=== PATIENT | male | born 1995 | race Caucasian/White ===

== ENCOUNTER 2017-11-22 03:01 | Emergency (ER) | payer MEDICAID, SELFPAY ==
[2017-11-22 03:06] VITALS: BP 131/62; PULSE 62; RESP 18; TEMP 36.8; O2SAT 98
[2017-11-22] MEDS: Acetaminophen 500 MG TAB 1000 MG PO (03:26)
[2017-11-22] MEDS: Lidocaine 5% Patch 1 PATCH TP (03:27)
[2017-11-22] MEDS: Ketorolac 30 MG/ML VIAL 15 MG IM (03:27)
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
[2017-11-22 04:09] LABS: Bilirubin Negative (Negative); Blood Negative (Negative); Clarity Sl Cloudy; Glucose Negative (Negative); Ketones Negative (Negative); Leukocyte Esterase Negative (Negative); Nitrite Negative (Negative)
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
[2017-11-22 04:16] LABS: Bacteria Rare HPF (Negative); C & S Indicated? No; Casts Negative LPF (Negative); Crystals Many Amorphous HPF (Negative); Epithelial Cells Rare HPF (Negative); Mucus Negative (Negative); RBC 0-2 (0-2)
--- NOTE | 2017-11-23 08:56 | PDOC.ERCMPRO ---
Care Management Progress Note 11/23/17-Pt seen for back pain by Dr. Manny Blandon on 11/22/17. Pt reported he would like to establish a pcp in this area. Pt currently is listed as living in [place] and has a PCP, Joanne Ackerman at [facility] in [place], [place]. CM has faxed a referral to switch PCP's to [facility] as Bernardo Portillo was production controller. CM has left two VM messages on the pt's cell phone.
--- NOTE | 2017-11-23 09:00 | CMPROGNOTE_ITS ---
Care Management Progress Note 11/23/17-Pt seen for back pain by Dr. Manny Blandon on 11/22/17. Pt reported he would like to establish a pcp in this area. Pt currently is listed as living in [place] and has a PCP, Joanne Ackerman at [facility] in [place], [place]. CM has faxed a referral to switch PCP's to [facility] as Bernardo Portillo was agricultural extension educator. CM has left two VM messages on the pt's cell phone.
== END 2017-11-22 04:29 | disposition home or self-care (01) ==
LOC: ER 04:38
PROVIDERS: Emergency Provider Student in an Organized Health Care Education/Training Program; PCP Nurse Practitioner Family
DX: M54.5 Low back pain (principal); R11.0 Nausea
CPT/HCPCS: 96372; 99284; 72072; 72110; 81003; 81015; 99285; J1885

== ENCOUNTER 2018-05-03 05:53 | Inpatient (IN) | payer OTHER, SELFPAY ==
[2018-05-03] VITALS (7 sets, daily range): BP systolic 118–149; BP diastolic 55–78; PULSE 42–67; RESP 14–20; TEMP 36.2–37.7; O2SAT 96–100
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
[2018-05-03] MEDS: Normal Saline 1,000 ML 1000 ML IV (06:12)
[2018-05-03] MEDS: Ketorolac 15 MG/ML VIAL IVP (06:15)
[2018-05-03] MEDS: Ondansetron 4 MG/2 ML VIAL IVP ×3 (06:16→22:25)
[2018-05-03 06:19] LABS: Abs Immature Grans 0.02 k/cumm (0.0-0.09); Absolute Basophil Count 0.01 k/cumm (0.0-0.2); Absolute Eosinophil Count 0.01 k/cumm (0.0-0.7); Absolute Lymphocyte Count 0.93 k/cumm (1.2-3.4); Absolute Monocyte Count 0.37 k/cumm (0.11-0.7); Basophils % 0.1; Eosinophils % 0.1; HCT 48.2 % (40.0-50.0); HGB 16.8 g/dL (13.5-17.5); Immature Grans % 0.1; Lymphocytes % 6.9; Mean Corp. HGB Concentration 34.9 g/dL (32.0-36.0); Mean Corpuscular Hemoglobin 30.5 pg (27.0-33.0); Mean Corpuscular Volume 87.6 fL (80-95); Mean Platelet Volume 9.8 fL (8.0-11.0); Monocytes % 2.7; Neutrophils % 90.1; Platelet Count 207 x1000/uL (130-400); RBC Distribution Width 13.6 % (11.8-14.1); White Blood Cell Count 13.54 k/cumm (4.4-10.8)
[2018-05-03 06:31] LABS: ALT 22 U/L (12-78); AST 20 U/L (15-37); Albumin 4.7 g/dL (3.4-5.0); Alkaline Phosphatase 58 U/L (46-116); Anion Gap 11.7 mmol/L (3-11); BUN 22 mg/dL (7-18); Bilirubin, Total 0.4 mg/dL (0.2-1.0); CO2 27.3 mmol/L (21.0-32.0); Calcium 9.8 mg/dL (8.5-10.1); Chloride 100 mmol/L (98-107); Glucose 136 mg/dL (70-100); Lipase 74 U/L (73-393); Potassium 4.7 mmol/L (3.5-5.1); Sodium 139 mmol/L (136-145); Total Protein 7.9 g/dL (6.4-8.2)
[2018-05-03] MEDS: LORazepam 2 MG/ML VIAL 1 MG IVP (06:41)
[2018-05-03] MEDS: Omnipaque 350 MG/ML 100 ML BTL IV ×2 (07:02→11:38)
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
[2018-05-03] MEDS: Benzocaine 20% 60 ML CAN (08:19)
[2018-05-03] MEDS: LORazepam 2 MG/ML VIAL 0.5 MG IVP (08:19)
--- NOTE | 2018-05-03 08:41 | NUR.NOTE ---
Nursing Note: Attempt x2 to place NG tube with no success. MD attempted x1 with no success. Will notify admitting physician.
[2018-05-03] MEDS: Lactated Ringers 1,000 ML 125 ML IV ×2 (09:43→19:46)
[2018-05-03] MEDS: HYDROmorphone 2 MG/ML VIAL 0.5 MG IVP ×3 (10:26→22:50)
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
[2018-05-03] MEDS: Omnipaque 350 MG/ML 100 ML BTL IJ (11:38)
[2018-05-03] MEDS: Omnipaque 350 MG/ML 50 ML BTL IJ (11:39)
[2018-05-03] MEDS: Ketorolac 30 MG/ML VIAL IVP ×3 (12:31→22:50)
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
--- NOTE | 2018-05-03 14:22 | W.PM.PROGNOT ---
Date of Service Date of service: 05/03/18 Time of Service: 14:22 Assessment and Plan (1) Bowel obstruction: Current visit: Yes Status: Acute As noted in H&P. Recurrent nausea and vomiting. NG was attempted x 3 in the ED without success. Will keep NPO except ice chips. Follow-up AXR in am. Will order nicotine patch per patient request. Discussed plans with patient. He is agreeable with plans as discussed. (2) Abdominal pain, chronic, left lower quadrant: Current visit: Yes Status: Acute As discussed. Continue bowel rest and await follow-up films in the am. Subjective Interval history since last seen: Patient had 1 green, bilious emesis since admission to floor. Small bowel follow-through shows contrast in small bowel down to LLQ with no further progression after [id number]. Discussed with radiologist, Dr. Tsang. Will obtain a follow-up AXR in the am. Patient notes some nausea and abdominal discomfort/cramping. (+) hiccups. Exam Const General: cooperative and no acute distress Eyes Sclera: sclerae normal GI Inspection: non-distended Palpation: soft, not firm, no guarding, no masses and not rigid Auscultation: normal bowel sounds Objective Objective Clinical Data: Abnormal lab results 05/03/18 05/03/18 Range/Units 06:08 06:08 WBC 13.54 H (4.4-10.8) k/cumm Absolute Neutrophils 12.20 H (1.2-6.7) k/cumm Absolute Lymphocytes 0.93 L (1.2-3.4) k/cumm Anion Gap 11.7 H (3-11) mmol/L BUN 22 H (7-18) mg/dL Glucose 136 H (70-100) mg/dL Vital Signs Temperature 36.7 C 05/03/18 13:00 Temperature Source Temporal Artery Scan 05/03/18 13:00 Pulse 42 L 05/03/18 13:00 Respiratory Rate 14 05/03/18 13:00 Respiratory Effort 05/03/18 05:58 Blood Pressure 149/76 H 05/03/18 13:00 Blood Pressure Position Sitting 05/03/18 05:55 Pulse Oximetry 100 05/03/18 13:00 Oxygen Delivery Method Room Air 05/03/18 13:00 Oxygen Flow Rate 0 05/03/18 13:00 Pain Level 0 05/03/18 12:08 Intake & Output 05/02/18 05/03/18 05/03/18 23:59 11:59 23:59 Intake Total 1000 / 1000 Balance 1000 / 1000 Weight 65.771 kg Intake: IV 1000 / 1000 Laboratory Results WBC 13.54 k/cumm (4.4-10.8) H 05/03/18 06:08 RBC 5.50 m/cumm (4.50-6.00) 05/03/18 06:08 Hgb 16.8 g/dL (13.5-17.5) 05/03/18 06:08 Hct 48.2 % (40.0-50.0) 05/03/18 06:08 MCV 87.6 fL (80-95) 05/03/18 06:08 MCH 30.5 pg (27.0-33.0) 05/03/18 06:08 MCHC 34.9 g/dL (32.0-36.0) 05/03/18 06:08 RDW 13.6 % (11.8-14.1) 05/03/18 06:08 Plt Count 207 x1000/uL (130-400) 05/03/18 06:08 MPV 9.8 fL (8.0-11.0) 05/03/18 06:08 Immature Gran % 0.1 05/03/18 06:08 Neutrophils % 90.1 05/03/18 06:08 Lymphocytes % 6.9 05/03/18 06:08 Monocytes % 2.7 05/03/18 06:08 Eosinophils % 0.1 05/03/18 06:08 Basophils % 0.1 05/03/18 06:08 Absolute Neutrophils 12.20 k/cumm (1.2-6.7) H 05/03/18 06:08 Absolute Lymphocytes 0.93 k/cumm (1.2-3.4) L 05/03/18 06:08 Absolute Monocytes 0.37 k/cumm (0.11-0.7) 05/03/18 06:08 Absolute Eosinophils 0.01 k/cumm (0.0-0.7) 05/03/18 06:08 Absolute Basophils 0.01 k/cumm (0.0-0.2) 05/03/18 06:08 Sodium 139 mmol/L (136-145) 05/03/18 06:08 Potassium 4.7 mmol/L (3.5-5.1) 05/03/18 06:08 Chloride 100 mmol/L (98-107) 05/03/18 06:08 Carbon Dioxide 27.3 mmol/L (21.0-32.0) 05/03/18 06:08 Anion Gap 11.7 mmol/L (3-11) H 05/03/18 06:08 BUN 22 mg/dL (7-18) H 05/03/18 06:08 Creatinine 1.00 mg/dL (0.70-1.30) 05/03/18 06:08 Estimated GFR/1.73 m2 >= 60.00 (mL/min/1.73m2) 05/03/18 06:08 Glucose 136 mg/dL (70-100) H 05/03/18 06:08 Calcium 9.8 mg/dL (8.5-10.1) 05/03/18 06:08 Total Bilirubin 0.4 mg/dL (0.2-1.0) 05/03/18 06:08 Conjugated Bilirubin 0.10 mg/dL (0.00-0.20) 05/03/18 06:08 AST 20 U/L (15-37) 05/03/18 06:08 ALT 22 U/L (12-78) 05/03/18 06:08 Alkaline Phosphatase 58 U/L (46-116) 05/03/18 06:08 Total Protein 7.9 g/dL (6.4-8.2) 05/03/18 06:08 Albumin 4.7 g/dL (3.4-5.0) 05/03/18 06:08 Lipase 74 U/L (73-393) 05/03/18 06:08
[2018-05-03] MEDS: Nicotine 21 MG/24 HR PATCH TD (14:55)
[2018-05-03] MEDS: Normal Saline Flush 10 ML SYR IVP (16:26)
[2018-05-04] VITALS (11 sets, daily range): BP systolic 112–149; BP diastolic 49–80; PULSE 45–65; RESP 13–18; TEMP 36.4–37.2; O2SAT 97–99
[2018-05-04] MEDS: HYDROmorphone 2 MG/ML VIAL 0.5 MG IVP ×3 (04:25→16:23)
[2018-05-04] MEDS: Normal Saline Flush 10 ML SYR IVP ×4 (04:25→16:24)
[2018-05-04 07:26] LABS: Abs Immature Grans 0.01 k/cumm (0.0-0.09); Absolute Basophil Count 0.01 k/cumm (0.0-0.2); Absolute Eosinophil Count 0.04 k/cumm (0.0-0.7); Absolute Lymphocyte Count 1.21 k/cumm (1.2-3.4); Absolute Monocyte Count 1.18 k/cumm (0.11-0.7); Basophils % 0.1; Eosinophils % 0.4; HCT 44.7 % (40.0-50.0); HGB 15.1 g/dL (13.5-17.5); Immature Grans % 0.1; Lymphocytes % 10.9; Mean Corp. HGB Concentration 33.8 g/dL (32.0-36.0); Mean Corpuscular Hemoglobin 30.1 pg (27.0-33.0); Mean Corpuscular Volume 89.2 fL (80-95); Mean Platelet Volume 10.1 fL (8.0-11.0); Monocytes % 10.6; Neutrophils % 77.9; Platelet Count 192 x1000/uL (130-400); RBC 5.01 m/cumm (4.50-6.00); RBC Distribution Width 13.9 % (11.8-14.1); White Blood Cell Count 11.11 k/cumm (4.4-10.8)
[2018-05-04 07:29] LABS: Absolute Neutrophil Count 8.65 k/cumm (1.2-6.7)
[2018-05-04 07:45] LABS: BUN 19 mg/dL (7-18); CREATININE 0.94 mg/dL (0.70-1.30); Calcium 8.7 mg/dL (8.5-10.1); Chloride 103 mmol/L (98-107); Glucose 110 mg/dL (70-100); Potassium 4.1 mmol/L (3.5-5.1); Sodium 138 mmol/L (136-145)
--- NOTE | 2018-05-04 08:46 | DI.RAD_ITS ---
SYMPTOM/DIAGNOSIS: F/U PARTIAL SMALL BOWEL OBSTRUCTION FLAT AND UPRIGHT ABDOMEN: Comparison is made with 05/03/18. There are persistent dilated loops of small bowel in the abdomen with air fluid levels. There is oral contrast which is unchanged in location in the pelvis. There does not appear to be progression. The findings are consistent with a small bowel obstruction. There is a moderate amount of stool seen in the colon. The lung bases are clear. No pneumoperitoneum or organomegaly is identified. IMPRESSION: Findings consistent with a small obstruction centered in the pelvis.
[2018-05-04] MEDS: Ondansetron 4 MG/2 ML VIAL IVP (08:50)
[2018-05-04] MEDS: Ketorolac 30 MG/ML VIAL IVP ×2 (08:50→20:01)
[2018-05-04] MEDS: Nicotine 21 MG/24 HR PATCH TD (08:51)
[2018-05-04] MEDS: Enoxaparin 40 MG/0.4 ML SYR SC (08:51)
--- NOTE | 2018-05-04 11:19 | PGE_ITS ---
Date of Service Date of service: 05/04/18 Time of Service: 11:16 Assessment and Plan (1) Bowel obstruction: Current visit: Yes Status: Acute SBO noted on SBFT with transition zone in the LLQ. Follow-up abdominal xrays this morning show no progression of the oral contrast. Patient with persistent pain, nausea, and vomiting. Will attempt NG placement again. Recommended proceeding with exploratory laparotomy today as there is persistent bowel obstruction on imaging and no progression of oral contrast > 18 hours after given. Opertaive procedure with risks, benefits, and alternatives reviewed with patient and his parents. These include but are not limited to risks with general anesthesia, bleeding, infection, scarring, forming more adhesions, bowel/organ injury, possible bowel resection, patel placement, and possible additional procedures. Expected postop course reviewed. All questions answered. Patient wishes to proceed. See orders. (2) Abdominal pain, chronic, left lower quadrant: Current visit: Yes Status: Acute Discussed with patient and parents that there is no guarantee that surgery will improve his chronic pain. We discussed that he may continue to have chronic pain and it may even be worse after surgery. Patient and parents verbalized understanding. Subjective Interval history since last seen: Patient seen with mother and father at bedside. Abdominal pain waxing and waning. No flatus or BM since admission. Had emesis yesterday and overnight. Last emesis at 4 am this morning. AXR follow-up of SBFT shows no progression of contrast. It is still in the small bowel in the LLQ. NG placement had been attempted in the ED unsuccessfully on admission. WBC ~ 11k. Exam Const General: cooperative and no acute distress Nutritional Appearance: thin Orientation: alert and oriented x3 Eyes Conjunctivae: conjunctivae normal Resp Effort & Inspection: normal respiratory effort and able to speak in complete sen tences Cardio Jugular venous pressure: no JVD Rate: regular rate Rhythm: regular rhythm GI Inspection: non-distended Palpation: firm (slightly firmer to palpatioin than ), no guarding and no masses Auscultation: hypoactive bowel sounds and other (bowel sounds present but less active than 05/03/18) Skin General skin exam: no rashes or lesions noted and no jaundice Neuro General: alert and oriented x3 Speech: speech normal Objective Objective Clinical Data: Abnormal lab results 05/04/18 05/04/18 Range/Units 06:10 07:10 WBC 11.11 H (4.4-10.8) k/cumm Absolute Neutrophils 8.65 H (1.2-6.7) k/cumm Absolute Monocytes 1.18 H (0.11-0.7) k/cumm BUN 19 H (7-18) mg/dL Glucose 110 H (70-100) mg/dL Vital Signs Temperature 36.9 C 05/04/18 07:45 Temperature Source Tympanic 05/04/18 07:45 Pulse 65 05/04/18 07:45 Pulse Rhythm Regular 05/04/18 08:58 Respiratory Rate 16 05/04/18 07:45 Respiratory Effort Non-Labored 05/04/18 08:58 Respiratory Depth Normal 05/04/18 08:58 Respiratory Pattern Normal 05/04/18 08:58 Blood Pressure 112/62 05/04/18 07:45 Blood Pressure Position Sitting 05/03/18 05:55 Pulse Oximetry 99 05/04/18 07:45 Oxygen Delivery Method Room Air 05/04/18 07:45 Oxygen Flow Rate 0 05/04/18 07:45 Pain Level 6 05/04/18 10:19 Intake & Output 05/03/18 05/03/18 05/04/18 11:59 23:59 11:59 Intake Total 1000 / 2080.5 1080.5 / 2080.5 170.5 / 170.5 Output Total 500 / 500 400 / 400 Balance 1000 / 1580.5 580.5 / 1580.5 -229.5 / -229.5 Weight 65.771 kg 65.771 kg Intake: IV 1000 / 2080.5 1080.5 / 2080.5 50.5 / 50.5 Oral 120 / 120 Output: Emesis 500 / 500 400 / 400 Other: Comment pt reports ind with uop in room, no issues Emesis Description Bile Bile Voiding Methods Toilet Laboratory Results WBC 11.11 k/cumm (4.4-10.8) H 05/04/18 06:10 RBC 5.01 m/cumm (4.50-6.00) 05/04/18 06:10 Hgb 15.1 g/dL (13.5-17.5) 05/04/18 06:10 Hct 44.7 % (40.0-50.0) 05/04/18 06:10 MCV 89.2 fL (80-95) 05/04/18 06:10 MCH 30.1 pg (27.0-33.0) 05/04/18 06:10 MCHC 33.8 g/dL (32.0-36.0) 05/04/18 06:10 RDW 13.9 % (11.8-14.1) 05/04/18 06:10 Plt Count 192 x1000/uL (130-400) 05/04/18 06:10 MPV 10.1 fL (8.0-11.0) 05/04/18 06:10 Immature Gran % 0.1 05/04/18 06:10 Neutrophils % 77.9 05/04/18 06:10 Lymphocytes % 10.9 05/04/18 06:10 Monocytes % 10.6 05/04/18 06:10 Eosinophils % 0.4 05/04/18 06:10 Basophils % 0.1 05/04/18 06:10 Absolute Neutrophils 8.65 k/cumm (1.2-6.7) H 05/04/18 06:10 Absolute Lymphocytes 1.21 k/cumm (1.2-3.4) 05/04/18 06:10 Absolute Monocytes 1.18 k/cumm (0.11-0.7) H 05/04/18 06:10 Absolute Eosinophils 0.04 k/cumm (0.0-0.7) 05/04/18 06:10 Absolute Basophils 0.01 k/cumm (0.0-0.2) 05/04/18 06:10 Sodium 138 mmol/L (136-145) 05/04/18 07:10 Potassium 4.1 mmol/L (3.5-5.1) 05/04/18 07:10 Chloride 103 mmol/L (98-107) 05/04/18 07:10 Carbon Dioxide 30.0 mmol/L (21.0-32.0) 05/04/18 07:10 Anion Gap 5.0 mmol/L (3-11) 05/04/18 07:10 BUN 19 mg/dL (7-18) H 05/04/18 07:10 Creatinine 0.94 mg/dL (0.70-1.30) 05/04/18 07:10 Estimated GFR/1.73 m2 >= 60.00 (mL/min/1.73m2) 05/04/18 07:10 Glucose 110 mg/dL (70-100) H 05/04/18 07:10 Calcium 8.7 mg/dL (8.5-10.1) 05/04/18 07:10 Total Bilirubin 0.4 mg/dL (0.2-1.0) 05/03/18 06:08 Conjugated Bilirubin 0.10 mg/dL (0.00-0.20) 05/03/18 06:08 AST 20 U/L (15-37) 05/03/18 06:08 ALT 22 U/L (12-78) 05/03/18 06:08 Alkaline Phosphatase 58 U/L (46-116) 05/03/18 06:08 Total Protein 7.9 g/dL (6.4-8.2) 05/03/18 06:08 Albumin 4.7 g/dL (3.4-5.0) 05/03/18 06:08 Lipase 74 U/L (73-393) 05/03/18 06:08
[2018-05-04] MEDS: LORazepam 2 MG/ML VIAL 1 MG IVP (11:31)
--- NOTE | 2018-05-04 11:41 | DI.RAD_ITS ---
SYMPTOMS/DIAGNOSIS: ASSESS NG TUBE PLACEMENT PORTABLE CHEST: Frontal view was obtained. The heart size and pulmonary vasculature are within normal limits. The lungs are clear and well expanded. No effusions or pneumothoraces are identified. The bones show no acute abnormality. The tip of the nasogastric tube is seen in the body of the stomach.
[2018-05-04] MEDS: Lactated Ringers 1,000 ML 125 ML IV ×3 (12:35→21:40)
[2018-05-04] MEDS: Bupivacaine 0.25% Pres-Free 30 ML VIAL (13:45)
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
[2018-05-04] MEDS: HYDROmorphone 2 MG/ML VIAL 1 MG IM (21:39)
[2018-05-05 03:15] VITALS: BP 114/52; PULSE 67; RESP 18; TEMP 36.9; O2SAT 97
[2018-05-05] MEDS: HYDROmorphone 2 MG/ML VIAL 1 MG IM (03:19)
--- NOTE | 2018-05-05 05:51 | NUR.NOTE ---
Nursing Note: Pt was medicated with Dilaudid twice on this shift and with good relief. NGTube drained 600 cc of coffee ground secretions. Canister was just changed. family at bedside whole night. Continue to monitor.
--- NOTE | 2018-05-05 05:54 | NUR.NOTE ---
Nursing Note: Abdominal incision site with 4 x 4 dressing with visible blood stain at twoney size. CSMT within normal limit. No nausea reported. Continue to observe/
[2018-05-05] MEDS: Lactated Ringers 1,000 ML 125 ML IV ×3 (06:30→22:47)
[2018-05-05 07:56] VITALS: BP 119/68; PULSE 67; RESP 16; TEMP 36.8; O2SAT 99
[2018-05-05] MEDS: Ketorolac 30 MG/ML VIAL IVP (08:29)
[2018-05-05] MEDS: Normal Saline Flush 10 ML SYR IVP ×4 (08:29→13:05)
[2018-05-05] MEDS: Nicotine 21 MG/24 HR PATCH TD (08:30)
[2018-05-05] MEDS: Enoxaparin 40 MG/0.4 ML SYR SC (08:30)
--- NOTE | 2018-05-05 09:33 | W.PM.PROGNOT ---
Date of Service Date of service: 05/05/18 Time of Service: 09:33 Assessment and Plan (1) Blood clotting disorder: Current visit: Yes Status: Acute Continue SCDs and Lovenox. Encouraged ambulation. May clamp NG to ambulate. (2) Bowel obstruction: Current visit: Yes Status: Acute POD # 1 s/p exploratory laparotomy/ lysis of adhesions. NG output - 800cc/overnight and hypoactive bowel sounds with only 1 episode of flatus reported. Await increased bowel function and decreased NG output before restarting po. Encouraged ambulation. Follow-up labs in am. Discussed w/ patient and mother at the bedside. Subjective Interval history since last seen: Patient seen with mother at the bedside. Complains of abdominal pain. Passed flatus once per patient. NG output - 800 cc green, bilious output overnight. Has voided. Has not ambulated since surgery. Exam Const General: no acute distress Nutritional Appearance: thin Orientation: alert and oriented x3 HENMT Head: normocephalic and atraumatic Eyes Conjunctivae: conjunctivae normal Sclera: sclerae normal Resp Effort & Inspection: normal respiratory effort and able to speak in complete sentences Auscultation: clear to auscultation bilaterally Cardio Jugular venous pressure: no JVD GI Inspection: non-distended and incision (midline dressing intact w/ moderate drainage on gauze - serosanguinous) Palpation: not firm, no guarding, no masses and not rigid Auscultation: hypoactive bowel sounds Skin General skin exam: no rashes or lesions noted and no jaundice Neuro General: alert and oriented x3 Speech: speech normal Psych Affect: irritable affect Attitude: avoids eye contact Objective Objective Clinical Data: Vital Signs Temperature 36.9 C 05/05/18 03:15 Temperature Source Tympanic 05/05/18 03:15 Pulse 67 05/05/18 03:15 Pulse Rhythm Regular 05/04/18 20:20 Respiratory Rate 18 05/05/18 03:15 Respiratory Effort Non-Labored 05/04/18 20:20 Respiratory Depth Normal 05/04/18 20:20 Respiratory Pattern Normal 05/04/18 20:20 Blood Pressure 114/52 L 05/05/18 03:15 Blood Pressure Position Sitting 05/03/18 05:55 Pulse Oximetry 97 05/05/18 03:15 Respiratory End-tidal CO2 38 05/04/18 14:55 Oxygen Delivery Method Room Air 05/05/18 03:15 Oxygen Flow Rate 0 05/05/18 03:15 Pain Level 8 05/05/18 08:29 Intake & Output 05/04/18 05/04/18 05/05/18 11:59 23:59 11:59 Intake Total 251.0 / 3248.916 2997.916 / 3248.916 1120.00 / 1120.00 Output Total 400 / 1050 650 / 1050 800 / 800 Balance -149.0 / 2198.916 2347.916 / 2198.916 320.00 / 320.00 Intake: IV 131.0 / 3128.916 2997.916 / 3128.916 1000.00 / 1000.00 Oral 120 / 120 120 / 120 Output: Gastric Drainage 200 / 200 800 / 800 Right Nare 200 / 200 800 / 800 Urine 450 / 450 Emesis 400 / 400 Other: Urine Color Yellow Urine Appearance Clear Urine Odor Strong Comment Pt voiding ad aide in toilet. No hat. Denies sx. Emesis Description Bile None Voiding Methods Toilet Urinal Laboratory Results WBC 11.11 k/cumm (4.4-10.8) H 05/04/18 06:10 RBC 5.01 m/cumm (4.50-6.00) 05/04/18 06:10 Hgb 15.1 g/dL (13.5-17.5) 05/04/18 06:10 Hct 44.7 % (40.0-50.0) 05/04/18 06:10 MCV 89.2 fL (80-95) 05/04/18 06:10 MCH 30.1 pg (27.0-33.0) 05/04/18 06:10 MCHC 33.8 g/dL (32.0-36.0) 05/04/18 06:10 RDW 13.9 % (11.8-14.1) 05/04/18 06:10 Plt Count 192 x1000/uL (130-400) 05/04/18 06:10 MPV 10.1 fL (8.0-11.0) 05/04/18 06:10 Immature Gran % 0.1 05/04/18 06:10 Neutrophils % 77.9 05/04/18 06:10 Lymphocytes % 10.9 05/04/18 06:10 Monocytes % 10.6 05/04/18 06:10 Eosinophils % 0.4 05/04/18 06:10 Basophils % 0.1 05/04/18 06:10 Absolute Neutrophils 8.65 k/cumm (1.2-6.7) H 05/04/18 06:10 Absolute Lymphocytes 1.21 k/cumm (1.2-3.4) 05/04/18 06:10 Absolute Monocytes 1.18 k/cumm (0.11-0.7) H 05/04/18 06:10 Absolute Eosinophils 0.04 k/cumm (0.0-0.7) 05/04/18 06:10 Absolute Basophils 0.01 k/cumm (0.0-0.2) 05/04/18 06:10 Sodium 138 mmol/L (136-145) 05/04/18 07:10 Potassium 4.1 mmol/L (3.5-5.1) 05/04/18 07:10 Chloride 103 mmol/L (98-107) 05/04/18 07:10 Carbon Dioxide 30.0 mmol/L (21.0-32.0) 05/04/18 07:10 Anion Gap 5.0 mmol/L (3-11) 05/04/18 07:10 BUN 19 mg/dL (7-18) H 05/04/18 07:10 Creatinine 0.94 mg/dL (0.70-1.30) 05/04/18 07:10 Estimated GFR/1.73 m2 >= 60.00 (mL/min/1.73m2) 05/04/18 07:10 Glucose 110 mg/dL (70-100) H 05/04/18 07:10 Calcium 8.7 mg/dL (8.5-10.1) 05/04/18 07:10 Total Bilirubin 0.4 mg/dL (0.2-1.0) 05/03/18 06:08 Conjugated Bilirubin 0.10 mg/dL (0.00-0.20) 05/03/18 06:08 AST 20 U/L (15-37) 05/03/18 06:08 ALT 22 U/L (12-78) 05/03/18 06:08 Alkaline Phosphatase 58 U/L (46-116) 05/03/18 06:08 Total Protein 7.9 g/dL (6.4-8.2) 05/03/18 06:08 Albumin 4.7 g/dL (3.4-5.0) 05/03/18 06:08 Lipase 74 U/L (73-393) 05/03/18 06:08
[2018-05-05] MEDS: Pantoprazole 40 MG VIAL IVP (10:36)
[2018-05-05] MEDS: Normal Saline 500 ML 200 ML IV (10:36)
[2018-05-05] MEDS: ACETAMINOPHEN 1,000 MG/100 ML BTL 400 MG IVPB ×2 (10:36→17:43)
[2018-05-05] MEDS: HYDROmorphone 2 MG/ML VIAL 1 MG IV ×3 (11:59→21:17)
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
--- NOTE | 2018-05-05 12:49 | PDOC.CMPRO ---
Care Management Progress Note S/O: Javier is much more active and alert today; seen ambulating through the hallways consistently. He will have follow up labs in the morning per provider. He remains on Lovenox, SCDs and is being encouraged to ambulate-his NG tube is clamped to allow for movement. He is noted to be irritable and avoided eye contact with provider; he is an everyday smoker provided a nicotine patch to relieve withdrawal. He was lying in bed, his parents at his bedside when CM met with him, he took a bit to warm up but did make good eye contact and shared his thoughts about his ongoing issues. CM reviewed patient advocacy and encouraged Javier to ask questions if he did not understand what was being explained to him, or to ask for this short story writer directly. He reported feeling incredibly hungry, and stated he had not eaten in four days. CM spoke with RN: Eliana who reviewed provider note and shared that the provider is likely awaiting NG output to slow down and for Javier to have another BM prior to increasing his diet. CM explained this to Javier and advised Eliana would be in shortly to review as well. Javier appeared forlorn with the news but was receptive and gracious in interaction. CM will continue to follow. A: 22 year old male admitted to [facility] 05/03/18 for SBO P: Javier will discharge to home when ready per MD. He will follow up with his PCP and plan of care as prescribed. He will transport via private vehicle with family.
--- NOTE | 2018-05-05 12:53 | CMPROGNOTE_ITS ---
Care Management Progress Note S/O: Javier is much more active and alert today; seen ambulating through the hallways consistently. He will have follow up labs in the morning per provider. He remains on Lovenox, SCDs and is being encouraged to ambulate-his NG tube is clamped to allow for movement. He is noted to be irritable and avoided eye contact with provider; he is an everyday smoker provided a nicotine patch to relieve withdrawal. He was lying in bed, his parents at his bedside when CM met with him, he took a bit to warm up but did make good eye contact and shared his thoughts about his ongoing issues. CM reviewed patient advocacy and encouraged Javier to ask questions if he did not understand what was being explained to him, or to ask for this jingle writer directly. He reported feeling incredibly hungry, and stated he had not eaten in four days. CM spoke with RN: Eliana who reviewed provider note and shared that the provider is likely awaiting NG output to slow down and for Javier to have another BM prior to increasing his diet. CM explained this to Javier and advised Eliana would be in shortly to review as well. Javier appeared forlorn with the news but was receptive and gracious in interaction. CM will continue to follow. A: 22 year old male admitted to [facility] 05/03/18 for SBO P: Javier will discharge to home when ready per MD. He will follow up with his PCP and plan of care as prescribed. He will transport via private vehicle with family.
[2018-05-05 14:18] VITALS: BP 127/67; PULSE 63; RESP 18; TEMP 37; O2SAT 97
[2018-05-05 16:43] VITALS: BP 137/69; PULSE 65; RESP 18; TEMP 37; O2SAT 96
[2018-05-05 21:07] VITALS: BP 121/71; PULSE 57; RESP 18; TEMP 36.2; O2SAT 95
[2018-05-06] MEDS: ACETAMINOPHEN 1,000 MG/100 ML BTL 400 MG IVPB ×3 (01:48→17:40)
[2018-05-06] MEDS: HYDROmorphone 2 MG/ML VIAL 1 MG IV ×4 (05:03→22:10)
[2018-05-06] MEDS: Normal Saline Flush 10 ML SYR IVP ×3 (05:04→22:11)
[2018-05-06 05:27] VITALS: BP 128/61; PULSE 67; RESP 18; TEMP 36.4; O2SAT 97
[2018-05-06] MEDS: Lactated Ringers 1,000 ML 125 ML IV ×2 (06:52→16:45)
[2018-05-06 07:24] LABS: Absolute Basophil Count 0.01 k/cumm (0.0-0.2); Absolute Eosinophil Count 0.12 k/cumm (0.0-0.7); Absolute Lymphocyte Count 1.26 k/cumm (1.2-3.4); Absolute Monocyte Count 0.65 k/cumm (0.11-0.7); Basophils % 0.2; Eosinophils % 1.9; HCT 39.4 % (40.0-50.0); HGB 13.4 g/dL (13.5-17.5); Lymphocytes % 19.6; Mean Corpuscular Hemoglobin 30.8 pg (27.0-33.0); Mean Corpuscular Volume 90.6 fL (80-95); Mean Platelet Volume 10.2 fL (8.0-11.0); Monocytes % 10.1; Neutrophils % 68.2; Platelet Count 152 x1000/uL (130-400); RBC 4.35 m/cumm (4.50-6.00); RBC Distribution Width 13.1 % (11.8-14.1); White Blood Cell Count 6.44 k/cumm (4.4-10.8)
[2018-05-06 07:34] LABS: BUN 20 mg/dL (7-18); Calcium 8.6 mg/dL (8.5-10.1); Chloride 103 mmol/L (98-107); Glucose 77 mg/dL (70-100); Potassium 3.9 mmol/L (3.5-5.1); Sodium 142 mmol/L (136-145)
[2018-05-06 07:45] VITALS: BP 131/66; PULSE 53; RESP 18; TEMP 36.6; O2SAT 100
[2018-05-06] MEDS: Nicotine 21 MG/24 HR PATCH TD (08:22)
[2018-05-06] MEDS: Enoxaparin 40 MG/0.4 ML SYR SC (08:22)
[2018-05-06] MEDS: Pantoprazole 40 MG VIAL IVP (10:15)
[2018-05-06 11:35] VITALS: BP 133/74; PULSE 57; RESP 18; TEMP 36.7; O2SAT 99
--- NOTE | 2018-05-06 13:05 | W.PM.PROGNOT ---
Date of Service Date of service: 05/06/18 Time of Service: 13:05 Assessment and Plan (1) Blood clotting disorder: Current visit: Yes Status: Acute Continue SCDs and Lovenox. Encouraged ambulation. (2) Bowel obstruction: Current visit: Yes Status: Acute POD # 2 s/p exploratory laparotomy/ lysis of adhesions. Bowel function returning. Will d/c NG and start clears. Patient instructed to start po intake slowly. PO pain meds. OK to shower. Subjective Interval history since last seen: Patient seen with sister and nurse at bedside. Patient seems to be in better spirits today. (+) increased flatus. NG output 750cc overnight but appears watery in tubing consistent with intake of ice chips. Labs noted. WBC WNL. Exam Const General: cooperative and no acute distress Nutritional Appearance: thin Orientation: alert and oriented x3 HENMT Head: normocephalic and atraumatic Eyes Sclera: sclerae normal Resp Effort & Inspection: normal respiratory effort and able to speak in complete sentences Cardio Jugular venous pressure: no JVD GI Inspection: non-distended and incision (pancho - dry/clean/intact, dressing d/c'd) Palpation: soft, not firm, no guarding, no masses, not rigid and tender (mildly tender at surgical sites) Auscultation: normal bowel sounds Skin General skin exam: no rashes or lesions noted and no jaundice Neuro General: alert and oriented x3 Speech: speech normal Psych Mental Status: mental status grossly normal Affect: normal affect Attitude: cooperative Objective Objective Clinical Data: Abnormal lab results 05/06/18 05/06/18 Range/Units 06:35 06:35 RBC 4.35 L (4.50-6.00) m/cumm Hgb 13.4 L (13.5-17.5) g/dL Hct 39.4 L (40.0-50.0) % Carbon Dioxide 33.0 H (21.0-32.0) mmol/L BUN 20 H (7-18) mg/dL Vital Signs Temperature 36.7 C 05/06/18 11:35 Temperature Source Tympanic 05/06/18 11:35 Pulse 57 L 05/06/18 11:35 Pulse Rhythm Regular 05/06/18 08:46 Respiratory Rate 18 05/06/18 11:35 Respiratory Effort Non-Labored 05/06/18 08:46 Respiratory Depth Normal 05/06/18 08:46 Respiratory Pattern Normal 05/06/18 08:46 Blood Pressure 133/74 05/06/18 11:35 Blood Pressure Position Sitting 05/03/18 05:55 Pulse Oximetry 99 05/06/18 11:35 Respiratory End-tidal CO2 38 05/04/18 14:55 Oxygen Delivery Method Room Air 05/06/18 11:35 Oxygen Flow Rate 0 05/06/18 11:35 Pain Level 5 05/06/18 11:35 Intake & Output 05/05/18 05/06/18 05/06/18 22:59 11:59 23:59 Intake Total Output Total 100 / 1550 Balance -100 / -664.583 Intake: IV Oral Output: Gastric Drainage 100 / 750 Right Nare 100 / 750 Urine Other: Urine Color Urine Appearance Urine Odor Comment Voiding Methods Laboratory Results WBC 6.44 k/cumm (4.4-10.8) 05/06/18 06:35 RBC 4.35 m/cumm (4.50-6.00) L 05/06/18 06:35 Hgb 13.4 g/dL (13.5-17.5) L 05/06/18 06:35 Hct 39.4 % (40.0-50.0) L 05/06/18 06:35 MCV 90.6 fL (80-95) 05/06/18 06:35 MCH 30.8 pg (27.0-33.0) 05/06/18 06:35 MCHC 34.0 g/dL (32.0-36.0) 05/06/18 06:35 RDW 13.1 % (11.8-14.1) 05/06/18 06:35 Plt Count 152 x1000/uL (130-400) 05/06/18 06:35 MPV 10.2 fL (8.0-11.0) 05/06/18 06:35 Immature Gran % 0.0 05/06/18 06:35 Neutrophils % 68.2 05/06/18 06:35 Lymphocytes % 19.6 05/06/18 06:35 Monocytes % 10.1 05/06/18 06:35 Eosinophils % 1.9 05/06/18 06:35 Basophils % 0.2 05/06/18 06:35 Absolute Neutrophils 4.40 k/cumm (1.2-6.7) 05/06/18 06:35 Absolute Lymphocytes 1.26 k/cumm (1.2-3.4) 05/06/18 06:35 Absolute Monocytes 0.65 k/cumm (0.11-0.7) 05/06/18 06:35 Absolute Eosinophils 0.12 k/cumm (0.0-0.7) 05/06/18 06:35 Absolute Basophils 0.01 k/cumm (0.0-0.2) 05/06/18 06:35 Sodium 142 mmol/L (136-145) 05/06/18 06:35 Potassium 3.9 mmol/L (3.5-5.1) 05/06/18 06:35 Chloride 103 mmol/L (98-107) 05/06/18 06:35 Carbon Dioxide 33.0 mmol/L (21.0-32.0) H 05/06/18 06:35 Anion Gap 6.0 mmol/L (3-11) 05/06/18 06:35 BUN 20 mg/dL (7-18) H 05/06/18 06:35 Creatinine 0.90 mg/dL (0.70-1.30) 05/06/18 06:35 Estimated GFR/1.73 m2 >= 60.00 (mL/min/1.73m2) 05/06/18 06:35 Glucose 77 mg/dL (70-100) 05/06/18 06:35 Calcium 8.6 mg/dL (8.5-10.1) 05/06/18 06:35 Total Bilirubin 0.4 mg/dL (0.2-1.0) 05/03/18 06:08 Conjugated Bilirubin 0.10 mg/dL (0.00-0.20) 05/03/18 06:08 AST 20 U/L (15-37) 05/03/18 06:08 ALT 22 U/L (12-78) 05/03/18 06:08 Alkaline Phosphatase 58 U/L (46-116) 05/03/18 06:08 Total Protein 7.9 g/dL (6.4-8.2) 05/03/18 06:08 Albumin 4.7 g/dL (3.4-5.0) 05/03/18 06:08 Lipase 74 U/L (73-393) 05/03/18 06:08
[2018-05-06 16:13] VITALS: BP 128/81; PULSE 53; RESP 13; TEMP 37; O2SAT 98
--- NOTE | 2018-05-06 18:32 | PDOC.CMPRO ---
Care Management Progress Note S/O: Javier's diet was advanced to clears, NG tube removed and he showered this morning. His affect appeared much brighter and he ambulated often through the hallways of [facility]/SUR[facility]. CM will continue to follow; no change to overall plan. A: 22 year old male admitted to [facility] 05/03/18 for SBO P: Javier will discharge to home when ready per MD. He will follow up with his PCP and plan of care as prescribed. He will transport via private vehicle with family.
[2018-05-06 20:07] VITALS: BP 134/74; PULSE 47; RESP 13; TEMP 37; O2SAT 95
[2018-05-06 23:28] VITALS: BP 143/71; PULSE 52; RESP 17; TEMP 36.4; O2SAT 99
[2018-05-07] MEDS: Normal Saline Flush 10 ML SYR IVP ×4 (03:56→19:38)
[2018-05-07] MEDS: HYDROmorphone 2 MG/ML VIAL 1 MG IV ×4 (03:56→19:38)
[2018-05-07 04:14] VITALS: BP 130/77; PULSE 52; RESP 16; TEMP 36; O2SAT 100
[2018-05-07 07:45] VITALS: BP 129/68; PULSE 54; RESP 16; TEMP 37.2; O2SAT 99
[2018-05-07] MEDS: ACETAMINOPHEN 1,000 MG/100 ML BTL 400 MG IVPB ×2 (07:50→16:39)
[2018-05-07] MEDS: Nicotine 21 MG/24 HR PATCH TD (07:50)
[2018-05-07] MEDS: Enoxaparin 40 MG/0.4 ML SYR SC (07:50)
--- NOTE | 2018-05-07 09:50 | DI.RAD_ITS ---
SYMPTOMS/DIAGNOSIS: SMALL BOWEL OBSTRUCTION, ? ILEUS FLAT PLATE ABDOMEN: Comparison 05/04/18. Since the prior examination, there are now surgical clips in the mid abdomen. Oral contrast is seen in the colon. There are mildly dilated loops of small bowel present which may reflect an ileus. No organomegaly is seen. There is a tiny crescent of air seen beneath the right hemidiaphragm which likely reflects the patient's recent abdominal surgery. The bones and joints appear intact. IMPRESSION: 1. Mildly dilated loops of small bowel which may reflect an ileus. 2. The patient is now status post abdominal surgery.
--- NOTE | 2018-05-07 10:12 | W.PM.PROGNOT ---
Documented by User: [email or web address] Galvan 05/07/18 10:21 Date of Service Date of service: 05/07/18 Time of Service: 10:12 Assessment and Plan (1) Blood clotting disorder: Current visit: Yes Status: Acute (2) Bowel obstruction: Current visit: Yes Status: Acute POD #3 s/p exploratory laparotomy with lysis of adhesions. Started on Clear liquids yesterday, no N/V, however ABD pain this morning. Will order ABD Flat plate to r/o Ileus. No BMs, minimal flatus. If Ileus present will return to NPO. If no Ileus, continue clear liquids as tolerated. Activity- Encouraged ambulation throughout the day. Disposition- D/C home once tolerating normal, soft diet and pain is well controlled with PO meds. Subjective Interval history since last seen: Mr. Ross reports that his abdomen is sore this morning. He denies having an BM, has passed minimal flatus. He denies nausea or vomiting. He reports that he tolerated clear liquids yesterday afternoon, however this morning he is not hungry secondary to his discomfort. He had just received Tylenol and was waiting for this to take effect. Denies fevers or chills. Exam Const General: cooperative and in distress mild Orientation: alert and oriented x3 Resp Effort & Inspection: normal respiratory effort, no audible wheezes and no cough GI Inspection: normal to inspection and non-distended Palpation: soft, guarding in the RLQ and in the LUQ and tender in the LLQ and in the RLQ Auscultation: hypoactive bowel sounds Objective Objective Clinical Data: Vital Signs Temperature 37.2 C 05/07/18 07:45 Temperature Source Tympanic 05/07/18 07:45 Pulse 54 L 05/07/18 07:45 Pulse Rhythm Regular 05/07/18 08:30 Respiratory Rate 16 05/07/18 07:45 Respiratory Effort Non-Labored 05/07/18 08:30 Respiratory Depth Normal 05/07/18 08:30 Respiratory Pattern Normal 05/07/18 08:30 Blood Pressure 129/68 05/07/18 07:45 Blood Pressure Position Sitting 05/03/18 05:55 Pulse Oximetry 99 05/07/18 07:45 Respiratory End-tidal CO2 38 05/04/18 14:55 Oxygen Delivery Method Room Air 05/07/18 07:45 Oxygen Flow Rate 0 03/11/19 07:45 Pain Level 7 05/07/18 09:58 Intake & Output 05/06/18 05/06/18 05/07/18 11:59 23:59 11:59 Intake Total 0 / 2945.417 Output Total 1500 / 2950 950 / 950 Balance 560 / -4.583 -930 / -930 Intake: IV 1100 / 1985.417 Oral 960 / 960 Output: Gastric Drainage 100 / 750 Right Nare 100 / 750 Urine 1400 / 2200 950 / 950 Other: Urine Color Yellow Yellow Urine Appearance Clear Clear Urine Odor Normal Normal Comment pt did report this am difficulty with getting stream started; I have to push a little bit today Voiding Methods Toilet Toilet Laboratory Results WBC 6.44 k/cumm (4.4-10.8) 05/06/18 06:35 RBC 4.35 m/cumm (4.50-6.00) L 05/06/18 06:35 Hgb 13.4 g/dL (13.5-17.5) L 05/06/18 06:35 Hct 39.4 % (40.0-50.0) L 05/06/18 06:35 MCV 90.6 fL (80-95) 05/06/18 06:35 MCH 30.8 pg (27.0-33.0) 05/06/18 06:35 MCHC 34.0 g/dL (32.0-36.0) 05/06/18 06:35 RDW 13.1 % (11.8-14.1) 05/06/18 06:35 Plt Count 152 x1000/uL (130-400) 05/06/18 06:35 MPV 10.2 fL (8.0-11.0) 05/06/18 06:35 Immature Gran % 0.0 05/06/18 06:35 Neutrophils % 68.2 05/06/18 06:35 Lymphocytes % 19.6 05/06/18 06:35 Monocytes % 10.1 05/06/18 06:35 Eosinophils % 1.9 05/06/18 06:35 Basophils % 0.2 05/06/18 06:35 Absolute Neutrophils 4.40 k/cumm (1.2-6.7) 05/06/18 06:35 Absolute Lymphocytes 1.26 k/cumm (1.2-3.4) 05/06/18 06:35 Absolute Monocytes 0.65 k/cumm (0.11-0.7) 05/06/18 06:35 Absolute Eosinophils 0.12 k/cumm (0.0-0.7) 05/06/18 06:35 Absolute Basophils 0.01 k/cumm (0.0-0.2) 05/06/18 06:35 Sodium 142 mmol/L (136-145) 05/06/18 06:35 Potassium 3.9 mmol/L (3.5-5.1) 05/06/18 06:35 Chloride 103 mmol/L (98-107) 05/06/18 06:35 Carbon Dioxide 33.0 mmol/L (21.0-32.0) H 05/06/18 06:35 Anion Gap 6.0 mmol/L (3-11) 05/06/18 06:35 BUN 20 mg/dL (7-18) H 05/06/18 06:35 Creatinine 0.90 mg/dL (0.70-1.30) 05/06/18 06:35 Estimated GFR/1.73 m2 >= 60.00 (mL/min/1.73m2) 05/06/18 06:35 Glucose 77 mg/dL (70-100) 05/06/18 06:35 Calcium 8.6 mg/dL (8.5-10.1) 05/06/18 06:35 Total Bilirubin 0.4 mg/dL (0.2-1.0) 05/03/18 06:08 Conjugated Bilirubin 0.10 mg/dL (0.00-0.20) 05/03/18 06:08 AST 20 U/L (15-37) 05/03/18 06:08 ALT 22 U/L (12-78) 05/03/18 06:08 Alkaline Phosphatase 58 U/L (46-116) 05/03/18 06:08 Total Protein 7.9 g/dL (6.4-8.2) 05/03/18 06:08 Albumin 4.7 g/dL (3.4-5.0) 05/03/18 06:08 Lipase 74 U/L (73-393) 05/03/18 06:08 Documented by User: Cris Linares MD 05/07/18 10:30
[2018-05-07 11:10] VITALS: BP 122/70; PULSE 56; RESP 16; TEMP 37; O2SAT 98
[2018-05-07] MEDS: Pantoprazole 40 MG VIAL IVP (12:55)
--- NOTE | 2018-05-07 14:46 | W.PM.PROGNOT ---
Date of Service Date of service: 05/07/18 Time of Service: 14:46 Assessment and Plan (1) S/P exploratory laparotomy: Current visit: Yes Status: Acute A\\ POD #3 s/p ex-lap for SBO. Had one band that was cut. NG tube removed yesterday and started on clears. Placed NPO this am due to distention and increased pain. ABDO Xray- mild dilatation of small bowel ? ileus This afternoon abdomen is soft, BS are present and patient feels hungry. He is still passing flatus. P\\ Start clears again. Discussed with patient to go slow. (2) Blood clotting disorder: Current visit: Yes Status: Acute Continue with Lovenox until able to eat more regular food. Subjective Interval history since last seen: Feeling better then this am. Feels hungry. Feels his belly Grumbling. Passing flatus. No BM yet Exam GI Inspection: incision (pancho intact. bruising noted) Palpation: soft and tender (minimal around the midline) Auscultation: normal bowel sounds Objective Objective Clinical Data: Vital Signs Temperature 98.6 F 05/07/18 11:10 Temperature Source Tympanic 05/07/18 11:10 Pulse 56 L 05/07/18 11:10 Pulse Rhythm Regular 05/07/18 08:30 Respiratory Rate 16 05/07/18 11:10 Respiratory Effort Non-Labored 05/07/18 08:30 Respiratory Depth Normal 05/07/18 08:30 Respiratory Pattern Normal 05/07/18 08:30 Blood Pressure 122/70 05/07/18 11:10 Blood Pressure Position Sitting 05/03/18 05:55 Pulse Oximetry 98 05/07/18 11:10 Respiratory End-tidal CO2 38 05/04/18 14:55 Oxygen Delivery Method Room Air 05/07/18 11:10 Oxygen Flow Rate 0 05/07/18 11:10 Pain Level 6 05/07/18 14:05 Intake & Output 05/06/18 05/07/18 05/07/18 23:59 11:59 23:59 Intake Total 0 / 2945.417 45 / 45 Output Total 1500 / 2950 950 / 950 Balance 560 / -4.583 -905 / -905 Intake: IV 1100 / 1984.417 Oral 960 / 960 25 / 25 Output: Gastric Drainage 100 / 750 Right Nare 100 / 750 Urine 1400 / 2200 950 / 950 Other: Urine Color Yellow Yellow Urine Appearance Clear Clear Urine Odor Normal Normal Comment pt did report this am difficulty with getting stream started; I have to push a little bit today Voiding Methods Toilet Toilet Laboratory Results WBC 6.44 k/cumm (4.4-10.8) 05/06/18 06:35 RBC 4.35 m/cumm (4.50-6.00) L 05/06/18 06:35 Hgb 13.4 g/dL (13.5-17.5) L 05/06/18 06:35 Hct 39.4 % (40.0-50.0) L 05/06/18 06:35 MCV 90.6 fL (80-95) 05/06/18 06:35 MCH 30.8 pg (27.0-33.0) 05/06/18 06:35 MCHC 34.0 g/dL (32.0-36.0) 05/06/18 06:35 RDW 13.1 % (11.8-14.1) 05/06/18 06:35 Plt Count 152 x1000/uL (130-400) 05/06/18 06:35 MPV 10.2 fL (8.0-11.0) 05/06/18 06:35 Immature Gran % 0.0 05/06/18 06:35 Neutrophils % 68.2 05/06/18 06:35 Lymphocytes % 19.6 05/06/18 06:35 Monocytes % 10.1 05/06/18 06:35 Eosinophils % 1.9 05/06/18 06:35 Basophils % 0.2 05/06/18 06:35 Absolute Neutrophils 4.40 k/cumm (1.2-6.7) 05/06/18 06:35 Absolute Lymphocytes 1.26 k/cumm (1.2-3.4) 05/06/18 06:35 Absolute Monocytes 0.65 k/cumm (0.11-0.7) 05/06/18 06:35 Absolute Eosinophils 0.12 k/cumm (0.0-0.7) 05/06/18 06:35 Absolute Basophils 0.01 k/cumm (0.0-0.2) 05/06/18 06:35 Sodium 142 mmol/L (136-145) 05/06/18 06:35 Potassium 3.9 mmol/L (3.5-5.1) 05/06/18 06:35 Chloride 103 mmol/L (98-107) 05/06/18 06:35 Carbon Dioxide 33.0 mmol/L (21.0-32.0) H 05/06/18 06:35 Anion Gap 6.0 mmol/L (3-11) 05/06/18 06:35 BUN 20 mg/dL (7-18) H 05/06/18 06:35 Creatinine 0.90 mg/dL (0.70-1.30) 05/06/18 06:35 Estimated GFR/1.73 m2 >= 60.00 (mL/min/1.73m2) 05/06/18 06:35 Glucose 77 mg/dL (70-100) 05/06/18 06:35 Calcium 8.6 mg/dL (8.5-10.1) 05/06/18 06:35 Total Bilirubin 0.4 mg/dL (0.2-1.0) 05/03/18 06:08 Conjugated Bilirubin 0.10 mg/dL (0.00-0.20) 05/03/18 06:08 AST 20 U/L (15-37) 05/03/18 06:08 ALT 22 U/L (12-78) 05/03/18 06:08 Alkaline Phosphatase 58 U/L (46-116) 05/03/18 06:08 Total Protein 7.9 g/dL (6.4-8.2) 05/03/18 06:08 Albumin 4.7 g/dL (3.4-5.0) 05/03/18 06:08 Lipase 74 U/L (73-393) 05/03/18 06:08
[2018-05-07] MEDS: Lactated Ringers 1,000 ML 100 ML IV (15:05)
[2018-05-07 16:21] VITALS: BP 144/67; PULSE 50; RESP 17; TEMP 37.5; O2SAT 96
--- NOTE | 2018-05-07 17:33 | CMPROGNOTE_ITS ---
Care Management Progress Note S/O: Javier was encouraged to ambulate as updated images showed an ileus. He was seen walking the hallways consistently throughout the day. He remains pleasant in interaction. CM will continue to follow; no change to overall plan. A: 22 year old male admitted to [facility] 05/03/18 for SBO P: Javier will discharge to home when ready per MD. He will follow up with his PCP and plan of care as prescribed. He will transport via private vehicle with family.
[2018-05-07 20:18] VITALS: BP 151/83; PULSE 50; RESP 18; TEMP 37.4; O2SAT 97
[2018-05-08] MEDS: Normal Saline Flush 10 ML SYR IVP ×2 (00:29→16:02)
[2018-05-08] MEDS: HYDROmorphone 2 MG/ML VIAL 1 MG IV ×3 (00:29→16:02)
[2018-05-08 00:30] VITALS: BP 134/77; PULSE 45; RESP 16; TEMP 37.2; O2SAT 98
[2018-05-08] MEDS: Lactated Ringers 1,000 ML 100 ML IV (00:30)
[2018-05-08 03:58] VITALS: BP 126/69; PULSE 50; RESP 18; TEMP 37; O2SAT 100
[2018-05-08 07:40] VITALS: BP 130/78; PULSE 54; RESP 16; TEMP 37.5; O2SAT 99
[2018-05-08] MEDS: Pantoprazole 40 MG VIAL IVP (09:51)
--- NOTE | 2018-05-08 09:54 | W.NUTCONSULT ---
Date of service: 05/08/18 Time of Service: 09:55 Nutritional Consult ASSESSMENT: Pt. has been NPO or clear liquids for six days now. He is 74 and 65.7 kg/145 lbs. His BMI is 17.6 kg/m2 consistent with underweight. There is no current weight. NUTRITIONAL DIAGNOSIS: Altered gastrointestinal function related to partial SBO and thus inability to take a regular diet for six days now. INTERVENTION: MD notes the plan is obviously to advance his diet if he tolerates the clears this time. Would consider TPN if he cannot tolerate clears today. MONITORING AND EVALUATION: 1. Will monitor for advance of diet. Will remain available for TPN recommendations if needed. 2. Please weigh patient so we can best assess his nutritional status. 3. Will evaluate nutrition care plan ongoing and adjust as needed. Time Spent in Nutritional Counseling and Treatment: LEE ANN
[2018-05-08] MEDS: Enoxaparin 40 MG/0.4 ML SYR SC (10:49)
[2018-05-08] MEDS: Nicotine 21 MG/24 HR PATCH TD (10:49)
--- NOTE | 2018-05-08 11:29 | W.PM.PROGNOT ---
Date of Service Date of service: 05/08/18 Time of Service: 11:30 Assessment and Plan (1) S/P exploratory laparotomy: Current visit: Yes Status: Acute POD #3 s/p Ex Lap and lysis of adhesions for SBO doing well ryley cli liq AD to soft. cont. ambulation supportive care Subjective Patient reports: tolerating liquids well, flatus, no bowel movement and afebrile; denies voiding w/o difficulty, nausea and shortness of breath Interval history since last seen: pt is hungry. pt says he does have a productive cough. lungs are clear Exam HENCT Head: normal to inspection, normocephalic and atraumatic Ears: hearing grossly normal bilaterally General nose exam: external nose normal Face and sinus: normal facial exam and sinuses nontender Mouth: oral mucosae normal, moist mucous membranes and normal tongue Teeth and gingiva: dentition normal Chest Chest: normal inspection of the chest Resp Effort & Inspection: normal respiratory effort and able to speak in complete sentences Auscultation: clear to auscultation bilaterally, no rales, no rhonchi and no wheezes Cardio Rate: regular rate Rhythm: regular rhythm GI Inspection: normal to inspection, non-distended and incision (C/C/D/ mild echymosis ) Palpation: soft Other: good BS Skin Rashes: no rashes Other: no thrush. no breakdown Extrem General: normal to inspection and no clubbing, cyanosis or edema Objective Objective Clinical Data: Vital Signs Temperature 37.5 C 05/08/18 07:40 Temperature Source Tympanic 05/08/18 07:40 Pulse 54 L 05/08/18 07:40 Pulse Rhythm Regular 05/08/18 00:30 Respiratory Rate 16 05/08/18 07:40 Respiratory Effort Non-Labored 05/08/18 00:30 Respiratory Depth Normal 05/08/18 00:30 Respiratory Pattern Normal 05/08/18 00:30 Blood Pressure 130/78 05/08/18 07:40 Blood Pressure Position Sitting 05/03/18 05:55 Pulse Oximetry 99 05/08/18 07:40 Respiratory End-tidal CO2 38 05/04/18 14:55 Oxygen Delivery Method Room Air 05/08/18 07:40 Oxygen Flow Rate 0 05/08/18 07:40 Pain Level 6 05/08/18 09:52 Intake & Output 05/07/18 05/07/18 05/08/18 11:59 23:59 11:59 Intake Total 1145 / 1145 941.667 / 941.667 Output Total 950 / 950 Balance 195 / 195 941.667 / 941.667 Intake: IV 1120 / 1120 941.667 / 941.667 Oral Output: Urine 950 / 950 Other: Urine Color Yellow Urine Appearance Clear Clear Urine Odor Normal Comment pt did report this am difficulty with getting stream started; I have to push a little bit today Voiding Methods Toilet Laboratory Results WBC 6.44 k/cumm (4.4-10.8) 05/06/18 06:35 RBC 4.35 m/cumm (4.50-6.00) L 05/06/18 06:35 Hgb 13.4 g/dL (13.5-17.5) L 05/06/18 06:35 Hct 39.4 % (40.0-50.0) L 05/06/18 06:35 MCV 90.6 fL (80-95) 05/06/18 06:35 MCH 30.8 pg (27.0-33.0) 05/06/18 06:35 MCHC 34.0 g/dL (32.0-36.0) 05/06/18 06:35 RDW 13.1 % (11.8-14.1) 05/06/18 06:35 Plt Count 152 x1000/uL (130-400) 05/06/18 06:35 MPV 10.2 fL (8.0-11.0) 05/06/18 06:35 Immature Gran % 0.0 05/06/18 06:35 Neutrophils % 68.2 05/06/18 06:35 Lymphocytes % 19.6 05/06/18 06:35 Monocytes % 10.1 05/06/18 06:35 Eosinophils % 1.9 05/06/18 06:35 Basophils % 0.2 05/06/18 06:35 Absolute Neutrophils 4.40 k/cumm (1.2-6.7) 05/06/18 06:35 Absolute Lymphocytes 1.26 k/cumm (1.2-3.4) 05/06/18 06:35 Absolute Monocytes 0.65 k/cumm (0.11-0.7) 05/06/18 06:35 Absolute Eosinophils 0.12 k/cumm (0.0-0.7) 05/06/18 06:35 Absolute Basophils 0.01 k/cumm (0.0-0.2) 05/06/18 06:35 Sodium 142 mmol/L (136-145) 05/06/18 06:35 Potassium 3.9 mmol/L (3.5-5.1) 05/06/18 06:35 Chloride 103 mmol/L (98-107) 05/06/18 06:35 Carbon Dioxide 33.0 mmol/L (21.0-32.0) H 05/06/18 06:35 Anion Gap 6.0 mmol/L (3-11) 05/06/18 06:35 BUN 20 mg/dL (7-18) H 05/06/18 06:35 Creatinine 0.90 mg/dL (0.70-1.30) 05/06/18 06:35 Estimated GFR/1.73 m2 >= 60.00 (mL/min/1.73m2) 05/06/18 06:35 Glucose 77 mg/dL (70-100) 05/06/18 06:35 Calcium 8.6 mg/dL (8.5-10.1) 05/06/18 06:35 Total Bilirubin 0.4 mg/dL (0.2-1.0) 05/03/18 06:08 Conjugated Bilirubin 0.10 mg/dL (0.00-0.20) 05/03/18 06:08 AST 20 U/L (15-37) 05/03/18 06:08 ALT 22 U/L (12-78) 05/03/18 06:08 Alkaline Phosphatase 58 U/L (46-116) 05/03/18 06:08 Total Protein 7.9 g/dL (6.4-8.2) 05/03/18 06:08 Albumin 4.7 g/dL (3.4-5.0) 05/03/18 06:08 Lipase 74 U/L (73-393) 05/03/18 06:08
[2018-05-08 11:54] VITALS: BP 132/76; PULSE 50; RESP 18; TEMP 36.9; O2SAT 97
--- NOTE | 2018-05-08 13:34 | W.NUTRFU ---
Date of service: 05/08/18 Time of Service: 13:34 Nutritional Follow up NOTE: Pt. was 65.7 kg on admission and is 59 kg today. He has lost 10% of his body weight in 6 days which is significant. His diet was advanced at lunch to a surgical soft. Will continue to follow and will monitor for tolerance of regular diet. Will monitor weight and continue to evaluate nutrition care plan and adjust as needed. Time Spent in Nutritional Counseling and Treatment: LEE ANN
--- NOTE | 2018-05-08 15:03 | PDOC.CMPRO ---
- If Service Date Differs Date of service: 05/08/18 Time of Service: 15:03 Care Management Progress Note S/O: Javier is tolerating a clear liquid diet and will advance his diet as tolerated. He is reporting starting to feel better, and feeling hungry. No change in DC plan. A: 22 year old male admitted to [facility] 05/03/18 for SBO P: Javier will discharge to home when ready per MD. He will follow up with his PCP and plan of care as prescribed. He will transport via private vehicle with family.
[2018-05-08 16:38] VITALS: BP 137/80; PULSE 62; RESP 18; TEMP 37.2; O2SAT 96
[2018-05-08] MEDS: traMADol 50 MG TAB PO (17:23)
[2018-05-08 19:44] VITALS: BP 146/77; PULSE 84; RESP 18; TEMP 36.8; O2SAT 97
[2018-05-09] MEDS: traMADol 50 MG TAB PO ×2 (01:01→09:00)
[2018-05-09 07:31] LABS: Platelet Count 205 x1000/uL (130-400)
[2018-05-09 07:42] VITALS: BP 154/79; PULSE 56; RESP 20; TEMP 37.4; O2SAT 96
--- NOTE | 2018-05-09 07:54 | W.PM.PROGNOT ---
Date of Service Date of service: 05/09/18 Time of Service: 07:00 Assessment and Plan (1) S/P exploratory laparotomy: Current visit: Yes Status: Acute A\\ POD #5 s/p ex-lap and KENDRICK P\\ 1 suppository this am Continue with diet SL IV If doing well this pm could be discharged Follow up on Monday to have pancho removed Plan discussed with Javier Subjective Interval history since last seen: Javier is doing well. Pain is controlled on Ibuprofen, Tylenol and Ultram. He is passing a lot of flatus but has not had a BM yet. Feels some pressure in the rectal area. Exam Resp Auscultation: clear to auscultation bilaterally Cardio Rate: regular rate Rhythm: regular rhythm GI Inspection: incision (c/d/i. Echymosis noted around abdomen) Palpation: soft and tender (mild along the midline incision. His chronic pain in the LLQ is improved) Auscultation: normal bowel sounds Objective Objective Clinical Data: Vital Signs Temperature 99.3 F 05/09/18 07:42 Temperature Source Tympanic 05/09/18 07:42 Pulse 56 L 05/09/18 07:42 Pulse Rhythm Regular 05/09/18 01:31 Respiratory Rate 20 05/09/18 07:42 Respiratory Effort Non-Labored 05/09/18 01:31 Respiratory Depth Normal 05/09/18 01:31 Respiratory Pattern Normal 05/09/18 01:31 Blood Pressure 154/79 H 05/09/18 07:42 Blood Pressure Position Sitting 05/03/18 05:55 Pulse Oximetry 96 05/09/18 07:42 Respiratory End-tidal CO2 38 05/04/18 14:55 Oxygen Delivery Method Room Air 05/09/18 07:42 Oxygen Flow Rate 0 05/09/18 07:42 Pain Level 8 05/09/18 01:01 Intake & Output 05/08/18 05/08/18 05/09/18 11:59 23:59 11:59 Intake Total 1941.667 / 2181.667 240 / 2181.667 1000 / 1000 Output Total 1000 / 1000 Balance 941.667 / 1181.667 240 / 1699.040 7908 / 1000 Weight 130 lb 1.164 oz Intake: IV 1941.667 / 7718.528 3792 / 1000 Oral 240 / 240 Output: Urine 1000 / 1000 Other: Urine Color Yellow Urine Appearance Clear Urine Odor Normal Comment Pt voids ind. Pt voiding ad aide in toilet. Denies sx. independent , unable to assess urine. Voiding Methods Toilet Laboratory Results WBC 6.44 k/cumm (4.4-10.8) 05/06/18 06:35 RBC 4.35 m/cumm (4.50-6.00) L 05/06/18 06:35 Hgb 13.4 g/dL (13.5-17.5) L 05/06/18 06:35 Hct 39.4 % (40.0-50.0) L 05/06/18 06:35 MCV 90.6 fL (80-95) 05/06/18 06:35 MCH 30.8 pg (27.0-33.0) 05/06/18 06:35 MCHC 34.0 g/dL (32.0-36.0) 05/06/18 06:35 RDW 13.1 % (11.8-14.1) 05/06/18 06:35 Plt Count 152 x1000/uL (130-400) 05/06/18 06:35 MPV 10.2 fL (8.0-11.0) 05/06/18 06:35 Immature Gran % 0.0 05/06/18 06:35 Neutrophils % 68.2 05/06/18 06:35 Lymphocytes % 19.6 05/06/18 06:35 Monocytes % 10.1 05/06/18 06:35 Eosinophils % 1.9 05/06/18 06:35 Basophils % 0.2 05/06/18 06:35 Absolute Neutrophils 4.40 k/cumm (1.2-6.7) 05/06/18 06:35 Absolute Lymphocytes 1.26 k/cumm (1.2-3.4) 05/06/18 06:35 Absolute Monocytes 0.65 k/cumm (0.11-0.7) 05/06/18 06:35 Absolute Eosinophils 0.12 k/cumm (0.0-0.7) 05/06/18 06:35 Absolute Basophils 0.01 k/cumm (0.0-0.2) 05/06/18 06:35 Sodium 142 mmol/L (136-145) 05/06/18 06:35 Potassium 3.9 mmol/L (3.5-5.1) 05/06/18 06:35 Chloride 103 mmol/L (98-107) 05/06/18 06:35 Carbon Dioxide 33.0 mmol/L (21.0-32.0) H 05/06/18 06:35 Anion Gap 6.0 mmol/L (3-11) 05/06/18 06:35 BUN 20 mg/dL (7-18) H 05/06/18 06:35 Creatinine 0.90 mg/dL (0.70-1.30) 05/06/18 06:35 Estimated GFR/1.73 m2 >= 60.00 (mL/min/1.73m2) 05/06/18 06:35 Glucose 77 mg/dL (70-100) 05/06/18 06:35 Calcium 8.6 mg/dL (8.5-10.1) 05/06/18 06:35 Total Bilirubin 0.4 mg/dL (0.2-1.0) 05/03/18 06:08 Conjugated Bilirubin 0.10 mg/dL (0.00-0.20) 05/03/18 06:08 AST 20 U/L (15-37) 05/03/18 06:08 ALT 22 U/L (12-78) 05/03/18 06:08 Alkaline Phosphatase 58 U/L (46-116) 05/03/18 06:08 Total Protein 7.9 g/dL (6.4-8.2) 05/03/18 06:08 Albumin 4.7 g/dL (3.4-5.0) 05/03/18 06:08 Lipase 74 U/L (73-393) 05/03/18 06:08
[2018-05-09] MEDS: Ondansetron 4 MG/2 ML VIAL IVP (09:00)
[2018-05-09] MEDS: Bisacodyl 10 MG SUPP PR (09:00)
[2018-05-09] MEDS: Enoxaparin 40 MG/0.4 ML SYR SC (09:01)
[2018-05-09] MEDS: Normal Saline Flush 10 ML SYR IVP ×2 (09:01→10:06)
[2018-05-09] MEDS: Nicotine 21 MG/24 HR PATCH TD (09:01)
[2018-05-09] MEDS: Pantoprazole 40 MG VIAL IVP (10:06)
[2018-05-09] MEDS: Milk of Magnesia 30 ML CUP PO (11:02)
[2018-05-09 11:21] VITALS: BP 143/93; PULSE 72; RESP 18; TEMP 37.1; O2SAT 100
[2018-05-09] MEDS: Acetaminophen 325 MG TAB 650 MG PO (12:54)
--- NOTE | 2018-05-09 17:23 | PDOC.CMDIS ---
LACE Index Scoring Tool - Questions: Length of Stay (in days): 4 - 6 Acuity (Admit via E.D.?): Yes E.D. Visits: 2 - Answers: Total Score: 9 Risk of Readmission: Low Risk Care Management Discharge Reason for Hospitalization: SBO Discharge Plan: Javier will discharge to home when ready per MD. He will follow up with his PCP and plan of care as prescribed. He will transport via private vehicle with family. Patient/Family Education Needs: Review discharge instructions, discuss Ask Me Three.
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
== END 2018-05-09 14:57 | disposition home or self-care (01) | DRG 336 ==
LOC: ER 08:04 → MS 12:49
PROVIDERS: Admitting Provider Surgery; Emergency Provider Emergency Medicine; PCP Nurse Practitioner Family; Visit Provider Surgery
PROC: 0DN80ZZ Release Small Intestine, Open Approach (ICD-10-PCS; CPT 49000; principal; 2018-05-04 12:30)
DX: K56.699 Other intestinal obstruction unspecified as to partial versus complete obstruction (principal); D68.9 Coagulation defect, unspecified; K66.0 Peritoneal adhesions (postprocedural) (postinfection); K56.7 Ileus, unspecified; G89.29 Other chronic pain; R10.32 Left lower quadrant pain; Z87.828 Personal history of other (healed) physical injury and trauma; F17.210 Nicotine dependence, cigarettes, uncomplicated; F12.90 Cannabis use, unspecified, uncomplicated
CPT/HCPCS: 44005; 36415; 71045; 80048; 80053; 80076; 83690; 96361; 96374; 96375; 96376; 99222; 99233; 99238; 99285; J1650; NC; 74018; 74019; 74177; 74250; 85025; 85049; 93005; 93010; J0131; J1100; J1885; J2060; J2405; J3010; J3490; Q9967

== ENCOUNTER 2018-07-17 00:16 | Outpatient (CLI) | payer OTHER, SELFPAY ==
--- NOTE | 2018-07-17 10:00 | DI.US_ITS ---
SYMPTOMS/DIAGNOSIS: UNSPECIFIED ABDOMINAL PAIN, R10.9, ? INCISIONAL/VENTRAL HERNIA ULTRASOUND EXAMINATION OF THE ANTERIOR ABDOMINAL WALL: Evaluation of the abdominal midline just lateral to a surgical scar reveals no evidence of a hernia.
== END 2018-07-17 00:36 ==
PROVIDERS: PCP Nurse Practitioner Family; Visit Provider Physical Therapy Assistant
DX: R10.9 Unspecified abdominal pain (principal); Z98.890 Other specified postprocedural states
CPT/HCPCS: 76857

== ENCOUNTER 2018-08-28 00:23 | Emergency (ER) | payer OTHER, SELFPAY ==
[2018-08-28 00:25] VITALS: BP 138/87; PULSE 94; RESP 18; TEMP 36.7; O2SAT 100
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
--- NOTE | 2018-08-28 00:50 | DI.RAD_ITS ---
SYMPTOM/DIAGNOSIS: LEFT SIDED CHEST PAIN, COUGH, SOB, R/O ACUTE DISEASE PA AND LATERAL CHEST: Comparison is made with 04 May 2017. The heart size is normal. The lungs are well inflated and clear. No infiltrate or effusion is seen. There is no evidence of pneumothorax. No rib fractures visible. The spine appears intact. IMPRESSION: Negative chest x-ray
[2018-08-28] MEDS: Ibuprofen 600 MG TAB PO (00:51)
[2018-08-28] MEDS: Albuterol/Ipratropium 3 ML UPD VIAL UPD (00:51)
--- NOTE | 2018-08-28 01:02 | DI.VRAD_ITS ---
EXAM: XR Chest, 2 Views EXAM DATE/TIME: 08/28/2018 12:36 AM CLINICAL HISTORY: 23 years old, male; Cough and shortness of breath; Other: Left sided; Patient HX: L sided chest pain, cough, SOB for a few days TECHNIQUE: Imaging protocol: XR of the chest, 2 views. COMPARISON: CR XR PORTABLE CHEST AP 05/04/2018 11:55 AM FINDINGS: Lungs: Unremarkable. No consolidation. Pleural space: Unremarkable. No evidence of pneumothorax. Heart/Mediastinum: Unremarkable. Heart size within normal limits for technique. Bones/joints: Unremarkable. IMPRESSION: No acute findings. Dictated and Authenticated by: Ehsan Ervin MD. Ordering:JEANNE Youssef MD
[2018-08-28 01:32] LABS: D-Dimer 289 ng/mlFEU (<500)
[2018-08-28] MEDS: Lidocaine 5% Patch 1 PATCH TP (01:36)
[2018-08-28] MEDS: Albuterol HFA 8 GM 60 PUFF INH IH (01:47)
== END 2018-08-28 01:42 | disposition home or self-care (01) ==
PROVIDERS: Emergency Provider Physician Assistant; PCP Nurse Practitioner Family
DX: R07.81 Pleurodynia (principal); R05 Cough; F17.210 Nicotine dependence, cigarettes, uncomplicated
CPT/HCPCS: 36415; 94640; 99283; 71046; 85379; J7620

== ENCOUNTER 2019-04-23 23:18 | Emergency (ER) | payer OTHER, SELFPAY ==
[2019-04-23 23:21] VITALS: BP 135/77; PULSE 94; RESP 16; TEMP 37.2; O2SAT 97
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
[2019-04-23 23:43] LABS: Abs Immature Grans 0.02 k/cumm (0.0-0.09); Absolute Basophil Count 0.02 k/cumm (0.0-0.2); Absolute Eosinophil Count 0.24 k/cumm (0.0-0.7); Absolute Lymphocyte Count 1.94 k/cumm (1.2-3.4); Absolute Neutrophil Count 6.17 k/cumm (1.2-6.7); Basophils % 0.2; Eosinophils % 2.6; HCT 44.4 % (40.0-50.0); HGB 15.2 g/dL (13.5-17.5); Immature Grans % 0.2 %; Lymphocytes % 21.3; Mean Corp. HGB Concentration 34.2 g/dL (32.0-36.0); Mean Corpuscular Hemoglobin 29.7 pg (27.0-33.0); Mean Corpuscular Volume 86.9 fL (80-95); Mean Platelet Volume 9.8 fL (8.0-11.0); Monocytes % 7.7; Platelet Count 234 x1000/uL (130-400); RBC 5.11 m/cumm (4.50-6.00); RBC Distribution Width 13.3 % (11.8-14.1); White Blood Cell Count 9.09 k/cumm (4.4-10.8)
[2019-04-23] MEDS: Omnipaque 350 MG/ML 50 ML BTL PO (23:43)
[2019-04-23] MEDS: Breeza Beverage 473 ML BTL PO ×2 (23:43→23:50)
[2019-04-23] MEDS: MORPHine 10 MG/ML VIAL 4 MG IVP (23:45)
[2019-04-23] MEDS: Lactated Ringers 1,000 ML 125 ML IV (23:46)
[2019-04-23 23:56] LABS: ALT 23 U/L (16-63); AST 15 U/L (15-37); Alkaline Phosphatase 54 U/L (46-116); Anion Gap 7.7 mmol/L (3-11); BUN 15 mg/dL (7-18); Bilirubin, Total 0.2 mg/dL (0.2-1.0); CO2 28.3 mmol/L (21.0-32.0); Calcium 8.4 mg/dL (8.5-10.1); Chloride 102 mmol/L (98-107); Glucose 118 mg/dL (74-106); Lipase 470 U/L (73-393); Sodium 138 mmol/L (136-145); Total Protein 6.9 g/dL (6.4-8.2)
--- NOTE | 2019-04-24 01:05 | DI.CT_ITS ---
EXAM: CT ABDOMEN PELVIS W CLINICAL HISTORY: abdominal pain TECHNIQUE: The exam was performed according to the usual protocol. COMPARISON: CT ABDOMEN PELVIS W from 05/03/2018 FINDINGS: Post IV and oral contrast. The exam is somewhat limited by lack of intra-abdominal fat. The liver, ga llbladder, spleen, pancreas, kidneys and adrenals are unremarkable. Contrast opacifies the stomach th rough the mid small bowel. No bowel dilatation or wall thickening is seen. The appendix appears anabel l. There is no evidence of obstruction. No free air or free fluid is seen. There is a moderate quanti ty of stool. The bladder, prostate and aorta are unremarkable. No suspicious bony abnormalities are s een. IMPRESSION: Negative CT of the abdomen and pelvis
[2019-04-24] MEDS: Omnipaque 350 MG/ML 100 ML BTL IJ (01:12)
[2019-04-24] MEDS: Normal Saline - Diluent 50 ML VIAL IV (01:13)
[2019-04-24] MEDS: Normal Saline Flush 10 ML SYR IVP (01:14)
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
[2019-04-24] MEDS: FAMOTIDINE 20 MG/50 ML BAG 200 MG IVPB (01:56)
[2019-04-24] MEDS: Metoclopramide 10 MG/2 ML VIAL IVP (01:57)
[2019-04-24] MEDS: Sucralfate 1 GM TAB PO (01:57)
[2019-04-24 02:47] VITALS: BP 121/66; PULSE 62; RESP 16; TEMP 36.9; O2SAT 99
== END 2019-04-24 02:50 | disposition home or self-care (01) ==
PROVIDERS: Emergency Provider Emergency Medicine; PCP Nurse Practitioner Family
DX: R10.84 Generalized abdominal pain (principal)
CPT/HCPCS: 80053; 83690; 96361; 96365; 96375; 99285; 74177; 85025; 99284; J2270; J2765; J3490; Q9967

== ENCOUNTER 2019-07-23 16:44 | Emergency (ER) | payer OTHER, SELFPAY ==
[2019-07-23 16:48] VITALS: BP 127/69; PULSE 75; RESP 15; TEMP 37; O2SAT 99
[2019-07-23 17:06] LABS: Abs Immature Grans 0.01 k/cumm (0.0-0.09); Absolute Basophil Count 0.02 k/cumm (0.0-0.2); Absolute Eosinophil Count 0.17 k/cumm (0.0-0.7); Absolute Lymphocyte Count 2.43 k/cumm (1.2-3.4); Absolute Neutrophil Count 3.87 k/cumm (1.2-6.7); Basophils % 0.3; Eosinophils % 2.4; HCT 48.3 % (40.0-50.0); HGB 16.7 g/dL (13.5-17.5); Immature Grans % 0.1 %; Lymphocytes % 33.8; Mean Corp. HGB Concentration 34.6 g/dL (32.0-36.0); Mean Corpuscular Hemoglobin 29.6 pg (27.0-33.0); Mean Corpuscular Volume 85.6 fL (80-95); Mean Platelet Volume 9.5 fL (8.0-11.0); Monocytes % 9.7; Neutrophils % 53.7; Platelet Count 243 x1000/uL (130-400); RBC 5.64 m/cumm (4.50-6.00); RBC Distribution Width 13.3 % (11.8-14.1)
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
[2019-07-23] MEDS: Dicyclomine 20 MG TAB PO (17:14)
[2019-07-23] MEDS: Normal Saline 1,000 ML 1000 ML IV (17:14)
[2019-07-23 17:16] LABS: Prothrombin Time 10.4 sec (9.3-11.0)
[2019-07-23 17:25] LABS: ALT 24 U/L (16-63); AST 14 U/L (15-37); Albumin 4.4 g/dL (3.4-5.0); Alkaline Phosphatase 55 U/L (46-116); Anion Gap 4.7 mmol/L (3-11); BUN 12 mg/dL (7-18); Bilirubin, Total 0.5 mg/dL (0.2-1.0); CO2 30.3 mmol/L (21.0-32.0); CREATININE 1.13 mg/dL (0.70-1.30); Calcium 9.4 mg/dL (8.5-10.1); Chloride 101 mmol/L (98-107); Glucose 110 mg/dL (74-106); Lipase 237 U/L (73-393); Potassium 4.1 mmol/L (3.5-5.1); Sodium 136 mmol/L (136-145); Total Protein 7.7 g/dL (6.4-8.2)
[2019-07-23 18:06] LABS: Bilirubin Negative (Negative); Blood Negative (Negative); Clarity Clear (Clear); Glucose Negative (Negative); Ketones Negative (Negative); Leukocyte Esterase Negative (Negative); Nitrite Negative (Negative); Specific Gravity 1.015 (1.005-1.025); Urobilinogen 0.2 EU/dL (Up TO 0.2)
[2019-07-23 18:25] VITALS: BP 116/62; PULSE 60; RESP 16; TEMP 37; O2SAT 98
== END 2019-07-23 18:40 | disposition home or self-care (01) ==
PROVIDERS: Emergency Provider Physician Assistant; PCP Nurse Practitioner Family
DX: R10.13 Epigastric pain (principal); Z87.828 Personal history of other (healed) physical injury and trauma
CPT/HCPCS: 36415; 80053; 83690; 96360; 99284; 81003; 85025; 85610

== ENCOUNTER 2020-06-18 13:58 | Emergency (ER) | payer SELFPAY ==
[2020-06-18 14:12] VITALS: BP 133/79; PULSE 88; RESP 15; TEMP 36.7; O2SAT 100
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
[2020-06-18] MEDS: Amoxicillin 500 MG CAP PO (15:03)
[2020-06-18 15:24] VITALS: BP 132/74; PULSE 79; RESP 17; TEMP 36.8; O2SAT 99
== END 2020-06-18 15:25 | disposition home or self-care (01) ==
PROVIDERS: Emergency Provider Physician Assistant; PCP Nurse Practitioner Family
DX: J02.8 Acute pharyngitis due to other specified organisms (principal); R43.2 Parageusia
CPT/HCPCS: 87880; 99283; 87081

== ENCOUNTER 2020-06-18 21:08 | Emergency (ER) | payer SELFPAY ==
[2020-06-18] VITALS (31 sets, daily range): BP systolic 110–146; BP diastolic 55–92; PULSE 69–125; RESP 8–22; TEMP 36.7–36.9; O2SAT 94–100
--- NOTE | 2020-06-18 21:30 | RT.EKG_ITS ---
APPROVED REPORT Exam: Resting ECG Patient Location: E HR:91 bpm ECG Measurements Heart Rate 91 AXIS MT 174 P 67 QRSd 86 QRS 85 QT 329 T 60 QTc 406 Conclusion Sinus rhythm...normal P axis, V-rate 60- 99
[2020-06-18 21:43] LABS: Abs Immature Grans 0.02 10^3/uL (0.0-0.06); Absolute Basophil Count 0.04 10^3/uL (0.0-0.2); Absolute Eosinophil Count 0.07 10^3/uL (0.0-0.7); Absolute Lymphocyte Count 2.28 10^3/uL (1.2-3.4); Absolute Monocyte Count 0.82 10^3/uL (0.1-0.8); Absolute Neutrophil Count 6.56 10^3/uL (1.2-6.7); Basophils % 0.4; Eosinophils % 0.7; HCT 45.1 % (40.0-50.0); HGB 15.2 g/dL (13.5-17.5); Immature Grans % 0.2; Lymphocytes % 23.3; MCH 29.4 pg (27.0-33.0); MCHC 33.7 % (32.0-36.0); MCV 87.2 fL (80-95); MPV 9.6 fL (8.0-11.0); Monocytes % 8.4; Nucleated RBC 0 %; Platelet Count 214 10^3/uL (130-400); RBC 5.17 10^6/uL (4.36-5.78); RDW 12.7 % (11.8-14.1); RDW-SD 40.9 fL; WBC 9.79 10^3/uL (4.4-10.8)
[2020-06-18] MEDS: LORazepam 2 MG/ML VIAL 1 MG IV (21:48)
[2020-06-18] MEDS: Normal Saline 1,000 ML 1000 ML IV (21:49)
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
[2020-06-18 21:58] LABS: ALT 30 U/L (16-63); AST 12 U/L (15-37); Albumin 3.8 g/dL (3.4-5.0); Alkaline Phosphatase 71 U/L (46-116); Anion Gap 9.6 mmol/L (3-11); BUN 23 mg/dL (7-18); Bilirubin, Total 0.3 mg/dL (0.2-1.0); CO2 28.4 mmol/L (21.0-32.0); CREATININE 1.4 mg/dL (0.70-1.30); Calcium 9.3 mg/dL (8.5-10.1); Chloride 102 mmol/L (98-107); Glucose 149 mg/dL (74-106); Magnesium 1.8 mg/dL (1.8-2.4); Potassium 3.8 mmol/L (3.5-5.1); Sodium 140 mmol/L (136-145); Total Protein 7.6 g/dL (6.4-8.2); Troponin I < 0.05 ng/mL (<0.06)
[2020-06-18 22:11] LABS: ETHANOL BLOOD < 3.0 mg/dL (<3)
[2020-06-19] VITALS: PULSE 68; RESP 11; O2SAT 97
[2020-06-19 00:01] VITALS: BP 120/63; PULSE 66; PULSE 69; RESP 19; O2SAT 97
== END 2020-06-19 00:45 | disposition home or self-care (01) ==
PROVIDERS: Student in an Organized Health Care Education/Training Program; Emergency Provider Emergency Medicine; PCP Nurse Practitioner Family
DX: R25.8 Other abnormal involuntary movements (principal); F41.9 Anxiety disorder, unspecified; R07.89 Other chest pain; R51.9 Headache, unspecified; T40.7X5A Adverse effect of cannabis (derivatives), initial encounter; F12.10 Cannabis abuse, uncomplicated
CPT/HCPCS: 36415; 80053; 80307; 93005; 96374; 99285; 80320; 83735; 84484; 85025; 93010; 99284; J2060